=== PATIENT | female | born 1980 | race Caucasian/White ===

== ENCOUNTER 2020-09-09 15:21 | Emergency (ER) | payer OTHER ==
[~2020-09-09 15:21] MED LIST: IBUPROFEN800 MG PO
[2020-09-09] MEDS ORDERED: METRONIDAZOLE500 MG PO (16:10)
[2020-09-09] MEDS ORDERED: NORCO 5-325 TA1 EACH PO (16:10)
[2020-09-09] MEDS ORDERED: CIPRO500 MG PO (16:10)
[2020-09-09 16:14] LABS: BASOPHIL 0.3 % (0-2); EOSINOPHIL 1.8 % (0-5); HCT 37.9 % (37.0-47.0); HGB 13.1 g/dl (12.5-16.0); LYMPHOCYTE 21.9 % (15-48); MCH 30.3 pg (25.0-31.0); MCHC 34.6 g/dL (32.0-36.0); MCV 87.5 fL (78.0-100.0); MONOCYTE 8.2 % (0-12); MPV 8.8 fL (6.0-9.5); NEUTROPHIL 67.5 % (41-80); NRBC 0; PLT 300 K/uL (150-400); RBC 4.33 M/uL (4.20-5.40); RDW 12.8 % (11.5-14.0); WBC 10.2 K/uL (4.0-10.5)
[2020-09-09 16:30] LABS: ALBUMIN 3.3 g/dL (3.4-5.0); BILIRUBIN - TOTAL 0.5 mg/dL (0.2-1.0); CREATININE 0.84 mg/dL (0.51-0.95); GLOBULIN (CALCULATION) 3.7 g/dL; POTASSIUM 3.5 mmol/L (3.5-5.1)
[2020-09-09] MEDS ORDERED: FIORICET1 EACH PO (18:43)
== END 2020-09-09 19:02 | disposition home or self-care (01) ==
LOC: FER 15:21
PROVIDERS: Nurse Practitioner Family
DX: G43.909 Migraine, unspecified, not intractable, without status migrainosus (principal); I10 Essential (primary) hypertension; Z87.19 Personal history of other diseases of the digestive system; Z85.42 Personal history of malignant neoplasm of other parts of uterus; Z88.0 Allergy status to penicillin; Z88.1 Allergy status to other antibiotic agents; Z88.5 Allergy status to narcotic agent; Z88.8 Allergy status to other drugs, medicaments and biological substances; Z79.899 Other long term (current) drug therapy
CPT/HCPCS: 36415; 80053; 84484; 85025; 93005; J1100; J1885; J2405; J7030

== ENCOUNTER 2022-01-13 08:56 | Emergency (ER) | payer OTHER ==
[~2022-01-13 08:56] MED LIST changes: +CIPRO500 MG PO; +FIORICET1 EACH PO; +METRONIDAZOLE500 MG PO; +NORCO 5-325 TA1 EACH PO
[2022-01-13 09:51] LABS: BASOPHIL 0.1 % (0-2); EOSINOPHIL 0.3 % (0-5); HCT 42.6 % (37.0-47.0); HGB 14.2 g/dl (12.5-16.0); LYMPHOCYTE 1.6 % (15-48); MCH 29.2 pg (25.0-31.0); MCHC 33.3 g/dL (32.0-36.0); MCV 87.5 fL (78.0-100.0); MONOCYTE 4.6 % (0-12); MPV 9.1 fL (6.0-9.5); NEUTROPHIL 93.1 % (41-80); NRBC 0; PLT 295 K/uL (150-400); RBC 4.87 M/uL (4.20-5.40); RDW 13.2 % (11.5-14.0); WBC 14.8 K/uL (4.0-10.5)
[2022-01-13 09:52] LABS: BILIRUBIN NEGATIVE (NEGATIVE); BLOOD TRACE-INTACT Ery/uL (NEGATIVE); CLARITY CLEAR (CLEAR); COLOR YELLOW (YELLOW); GLUCOSE (U) NORMAL (NORMAL); LEUKOCYTES NEGATIVE Leu/uL (NEGATIVE); NITRITE NEGATIVE (NEGATIVE); PROTEIN NEGATIVE (NEGATIVE); SPECIFIC GRAVITY 1.025 (1.001-1.030); UROBILINOGEN 0.2 mg/dL (0.2-1.0); pH 5.5 (5.0-9.0)
[2022-01-13 10:30] LABS: ALBUMIN 3.8 g/dL (3.4-5.0); BILIRUBIN - TOTAL 0.9 mg/dL (0.2-1.0); BUN/CREAT RATIO (CALC) 19.7 RATIO; CREATININE 0.76 mg/dL (0.51-0.95); GLOBULIN (CALCULATION) 3.9 g/dL; POTASSIUM 3.9 mmol/L (3.5-5.1); TOTAL PROTEIN 7.7 g/dL (6.4-8.2)
[2022-01-13 10:35] LABS: BACTERIA TRACE; URINARY RBC RARE
== END 2022-01-13 12:40 | disposition home or self-care (01) ==
LOC: FER 08:56
PROVIDERS: Emergency Medicine
DX: K52.9 Noninfective gastroenteritis and colitis, unspecified (principal); Z88.1 Allergy status to other antibiotic agents; Z20.822 Contact with and (suspected) exposure to COVID-19
CPT/HCPCS: 36415; 80053; 81001; 82150; 83690; 85025; J1885; J2405; J7030; U0002